=== PATIENT | female | born 1970 | race Caucasian/White ===

== ENCOUNTER → 2018-04-11 | Outpatient (CLI) | payer OTHER ==
--- NOTE | 2018-04-11 09:05 | DIAGNOSTIC IMAGING REPORT ---
LEFT FOOT 3 VIEWS HISTORY: Left foot pain. COMPARISON: None. FINDINGS: There is no fracture or dislocation. Soft tissue swelling within the fourth toe. No bony erosions identified. No radiopaque foreign bodies. The Lisfranc joint is intact. Cartilage spaces are maintained. IMPRESSION: Soft tissue swelling within the fourth toe. No underlying bony abnormality. Electronically signed by: Kevin Bartlett M.D. 04/11/2018 9:03 AM Dictated Date/Time: 04/11/2018 9:00 AM
== END | disposition home or self-care (01) ==
LOC: C.RAD1850 08:46
PROVIDERS: ATTEND Family Medicine
DX: M79.89 Other specified soft tissue disorders (principal); M79.675 Pain in left toe(s)

== ENCOUNTER 2025-01-10 07:21 | Observation (INO) ==
--- NOTE | 2025-01-02 13:39 | Anesthesiology Consultation ---
Date of Service January 02, 2025 Assessment & Plan (1) Encounter for pre-operative examination: Chart Review Chart Review: Acceptable Risk for Surgery and Patient NOT seen in Pre Admission Testing - Check test AM DOS -Infectious Disease screening: Per PAT nursing assessment on 01/02/25. No known infectious disease contacts in past 10 days or current infectious disease symptoms. No recent travel outside the country. History Surgery Operation Date: 01/10/25 08:40 Proposed Procedures p Laparoscopic Cholecystectomy with Cholangiogram, Possible Open - Cristian Driver MD, FACS Height/Weight Height: 5 ft 3 in Weight: 75.75 kg Allergies Allergy/AdvReac Type Severity Reaction Status Date / Time bee venom protein (honey bee) Allergy Severe ANAPHYLAXIS Verified 01/02/25 13:04 Cephalosporins Allergy Intermediate RASH Verified 01/02/25 13:04 raspberry Allergy Intermediate RASH Verified 01/02/25 13:04 pine nuts Allergy Hives Uncoded 01/02/25 13:04 Medications Home Medications Medication Instructions Recorded Confirmed Last Taken epinephrine 0.3 mg/0.3 mL 0.3 mg IM Q4H PRN Allergic Reaction 07/13/23 01/02/25 Unknown injection, auto-injector (EpiPen) Past Medical History Medical History (Updated 01/02/25 @ 13:36 by Rosanne Dumont PA-C) High cholesterol newly diagnosed 10/2024 (HDL 97 and LDL 119) Loose stools for last 6 weeks, "dr thinks it may be from her gallbladder" Past Family History Family History Grandfather (Maternal) Cancer Grandmother (Maternal) Diabetes Father Stroke Family/Other Heart disease Hypertension Denies family history of Ovarian cancer Prostate cancer Breast cancer Colorectal cancer Past Surgical History Surgical History H/O colonoscopy (08/2023) Social History Smoking Status: Former smoker Smoking cigarettes per day: off/on 20 years Do You Dip or Chew Tobacco: No Smoking End Date: 02/07/2020 Hx Alcohol Use: Yes alcohol intake frequency: other Alcohol Intake Frequency Comment: ~2 drinks/week Hx Substance Use: Yes substance use type: former substance user and marijuana Last Used Substance Other:: many years ago Lab Results Anesthesia Preop Results Results Anesthesia Widget: WBC 3.49 K/ul (4.8-10.8) L 01/01/25 Hgb 13.9 g/dl (12.0-16.0) 01/01/25 Hct 40.3 % (37.0-47.0) 01/01/25 Plt 239 K/uL (130-400) 01/01/25 Na 142 mmol/L (136-145) 01/01/25 K 3.7 mmol/L (3.5-5.1) 01/01/25 Cl 107 mmol/L (98-107) 01/01/25 CO2 30 mmol/L (21-32) 01/01/25 BUN 8 mg/dl (6-23) 01/01/25 Creat 0.74 mg/dl (0.6-1.2) 01/01/25 Glucose Level 96 mg/dl (70-99(Fasting)) 01/01/25 Testing Laboratory Results 01/01/25= AST: 279 ALT: 409 ALK PHOS: 122 Electrocardiogram Date: 01/01/25 Findings: + NSR @ (73bpm) Normal EKG per cardio
[~2025-01-10 07:21] MED LIST: DEXAMETHASONE SOD INJ 4 MG/ML VIAL ONE; MIDAZOLAM HCL 1 MG/ML 2ML VIAL ONE; ONDANSETRON INJ 2 MG/ML 2 ML VIAL ONE; PROPOFOL IV EMULSION 10 MG/ML 20 ML VIAL IV ONE; ROCURONIUM BROMIDE 10 MG/ML 5 ML VIAL IV ONE; SUGAMMADEX SODIUM 200 MG/2 ML VIAL IV ONE; fentaNYL citrate PF 100 MCG/2 ML VIAL ONE
[2025-01-10] MEDS: LR 15ML/HR IV SCH (08:05)
[2025-01-10] MEDS ORDERED: ATROPINE SULFATE 0.1 MG/ML 10ML SYR IV PRN (08:43)
[2025-01-10] MEDS ORDERED: NALOXONE HCL 0.4 MG/1 ML VIAL/CARP IV PRN (08:43)
[2025-01-10] MEDS ORDERED: FLUMAZENIL 0.1 MG/1 ML 10 ML VIAL IV PRN (08:43)
[2025-01-10] MEDS ORDERED: ePHEDrine sulfate 50 MG/ML AMP IV PRN (08:43)
[2025-01-10] MEDS ORDERED: PROMETHAZINE HCL 6.25 MG in SODIUM CHLORIDE 0.9% 50 ML IV PRN (08:43)
[2025-01-10] MEDS ORDERED: HYDROmorphone INJ 1 MG/ML SYRINGE IV PRN (08:43)
[2025-01-10] MEDS ORDERED: LABETALOL HCL IV 5 MG/ML 20ML IV PRN (08:43)
--- NOTE | 2025-01-10 09:03 | History & Physical Bridge Note ---
Date of Service January 10, 2025 History & Physical Bridge Note I have examined the patient, reviewed the History & Physical and in the interval since the performance of the History & Physical I have noted the following changes of clinical significance: no changes noted Supervising Physician Co-Signing Physician Notes SO at bedside all question answered
[2025-01-10] MEDS ORDERED: oxyCODONE HCL IR 5 MG TAB (IMMEDIATE RELEASE) PO PRN (09:30)
[2025-01-10] MEDS ORDERED: MoRPHine SULFATE 4 MG/ML 1 ML CARP\\VIAL IV PRN (09:30)
[2025-01-10] MEDS ORDERED: ACETAMINOPHEN 325 MG TAB PO PRN (09:30)
[2025-01-10] MEDS ORDERED: ceFAZolin 330 MG/ML 1 GM VIAL ONE (09:33)
[2025-01-10] MEDS: ceFAZolin 2000MG 2,000 MG/15 ML SYR IV ONE (09:37)
[2025-01-10] MEDS ORDERED: ROCURONIUM BROMIDE 10 MG/ML 5 ML VIAL IV ONE (09:46)
[2025-01-10] MEDS ORDERED: SUGAMMADEX SODIUM 200 MG/2 ML VIAL IV ONE (10:15)
[2025-01-10] MEDS ORDERED: PROPOFOL IV EMULSION 10 MG/ML 20 ML VIAL IV ONE (10:27)
[2025-01-10] MEDS ORDERED: fentaNYL citrate PF 100 MCG/2 ML VIAL ONE (10:33)
[2025-01-10] MEDS: IOVERSOL 50ml IV ONE (11:29)
[2025-01-10] MEDS: LIDOCAINE 1%/EPINEPHRINE 1:100,000 50 ML VIAL ONE (11:31)
--- NOTE | 2025-01-10 11:41 | Post Operative Brief Note ---
Immediate Post Op Note Date of Surgery January 10, 2025 Pre & Post Diagnosis Operation Date: 01/10/25 08:40 Pre-Op Diagnosis: Cholelithiasis Post-Op Diagnosis: Cholelithiasis I identified the patient and participated in the time-out.: Yes Procedure Operation Date: 01/10/25 08:40 Actual Procedures p Laparoscopic Cholecystectomy with Cholangiogram(Not Applicable) - Cristian Driver MD, FACS Surgeon Cristian Driver MD, FACS Reservations Clerk Ángela Martinez Estimated Blood Loss 70 Findings Consistent with Post-Op Diagnosis Drains Adalberto Drain
[2025-01-10] MEDS: ONDANSETRON INJ 2 MG/ML 2 ML VIAL IV PRN ×2 (12:05→15:05)
--- NOTE | 2025-01-10 12:12 | Operative Report ---
PG Post Operative Report Pre & Post Diagnosis Operation Date: 01/10/25 08:40 Pre-Op Diagnosis: Cholelithiasis Post-Op Diagnosis: Cholelithiasis I identified the patient and participated in the time-out.: Yes Procedure Operation Date: 01/10/25 08:40 Actual Procedures p Laparoscopic Cholecystectomy with Cholangiogram(Not Applicable) - Cristian Driver MD, FACS The patient was brought into the operating theater supine position general trach anesthesia systemic antibiotics on board timeout was had patient identified the abdomen was prepped byline solution properly draped small incision was made supraumbilically sufficient to place a Veress needle followed by CO2 followed by 5 mm trocar point of entry inspected no injury identified the depth of the right upper quadrant the gallbladder wall appeared to be thickened on direct visualization we placed a 5 mm epigastric port and 2 7 also ports a 5 mm preemptive local analgesic the gallbladder had a significant adhesions that were taken down with sharp dissection cauterized the wall was extremely thick the lateral right upper quadrant trocar site the grasper was able to elevate the gallbladder we then worked our way down to the neck of the gallbladder before even going to the neck of the gallbladder as we elevated the gallbladder we could visualize a dilated common bile duct we then we continued the dissection to free all this omental adhesions that were quite thickened all the way to the gallbladder and the wall itself was extremely thick and hard to even grasped with a large grasper but then we were able to dissect out the triangle of Mary was able to identify the cystic duct and visualize a easily from the common bile duct to the gallbladder a 5 mm clip was placed at the takeoff a small opening in the cystic duct was made a #4 urethral catheter transversing abdominal wall and Angiocath was positioned to x-ray for shaking we can see the cystic duct going a markedly dilated common bile duct there was no flow of the duodenum we repeated the average and got the same picture markedly dilated and some I thought I could see some small stones in at this point we remove the catheter doubly secured the cystic duct with 5 mm clips and took the gallbladder out in antegrade fashion from the liver bed which was extremely difficult thickened wall easily bled only able to free at all appendicular into the gallbladder and identified that there part 1 had recently grasped with the difficulty had a large stone, a 2 cm stone this fell out of the gallbladder and apparently got into it and also some other stones using electrocautery we then freed the posterior wall the gallbladder from the liver to the point that hemostasis appeared satisfactory although we did have moderate amount of oozing when all this inflammatory tissue. We were never able to identify the cystic artery and this information left hemostasis was controlled. No further bleeding was appreciated on the gallbladder fossa as we had taken out the gallbladder from the liver fossa with needed to enlarge the epigastric port to a 12 mm which we did 12 mm port was inserted replacement gallbladder an Endopouch and took it out intact through the port although we had to enlarge the opening a little bit more just to evacuate his large stone we then used another another 5 mm bag to try to engage all these extra smaller stones which we had some success but there is still some residual therefore we used a large stone extractor to remove all the stones that we proceed for the subhepatic area in the right gutter area was checked hemostasis irrigated and appeared quite satisfactory I elected to drain the subhepatic area with a 19 Adalberto drain which was brought through the epigastric area and up to the right u pper quadrant trocar site placed underneath the liver secured in place with 2-0 silk we then closed the epigastric trocar site with 0 Vicryl suture [id number] x 2 and another stitch of 0 Vicryl subcutaneous tissue that Monocryl 4 oh 30 remaining incisions of note prior to removing the camera and the trocars we inspected the trocar sites placed the camera right upper trocar site to visualize the initial entry into the umbilical area no bowel was attached to the area no adhesions once all the wounds were Steri-Strips were applied the procedure was tolerated well by the patient estimate blood loss approximately 70 cc Addendum Maame Kruger physician sound assistant was present procedure and helped retraction exposure wound closure After the procedure I spoke with Audi significant other at [phone] and told him that the patient had stones in the common bile duct and need to be removed and I did warn him ahead of time since the patient had mentioned possibility that she had liver function test elevated in the past and repeat blood showed some elevation of the bilirubin was normal we will arrange for the patient to go to [place] today or tomorrow depending on the feasibility since we have no ERCP at this hospital Surgeon Cristian Driver MD, FACS Supervisor In Circuit Testing Ángela Martinez Estimated Blood Loss 70 Findings Consistent with Post-Op Diagnosis Chronic cholecystitis cholelithiasis, bile duct stones Specimens Gallbladder and stones Drains 19 Adalberto subhepatic Indications Significant right upper quadrant pain for some time history of liver enzyme elevation done at [place] with no results were available we repeated the liver function test and they were slightly elevated but bilirubin was normal Description of Procedure merda I attest to the content of the Intraoperative Record and any orders documented therein. Any exceptions are noted below.
[2025-01-10] MEDS: fentaNYL citrate PF 100 MCG/2 ML VIAL IV PRN (12:15)
--- NOTE | 2025-01-10 12:22 | Fluoroscopy Report ---
[place] cholangiogram OR CLINICAL HISTORY: CHOLANGIOGRAM COMPARISON STUDY: Right upper quadrant ultrasound December 06, 2024. FLUOROSCOPY TIME: 1.6 seconds. Ka,r: 0.1829 mGy FLUOROSCOPIC IMAGES: 2 FINDINGS: Fluoroscopy was provided during intraoperative cholangiogram. These images demonstrate a ma rkedly dilated common bile duct. There was no opacification of the duodenum. Multiple small filling d efects within the common bile duct are noted. IMPRESSION: Fluoroscopy provided during intraoperative cholangiogram. Markedly dilated common bile d uct which likely contains numerous calculi. No opacification of the duodenum. ACT 112: Negative or not required by law. Electronically signed by: Javon Leal M.D. 01/10/2025 12:19 PM
--- NOTE | 2025-01-10 13:20 | Anesthesiology Progress Note ---
Date of Service January 10, 2025 Anesthesia Post Procedure Vital Signs Vital Signs: Temp Pulse Pulse Resp BP BP Pulse Ox 01/10/25 13:00 72 12 146/97 H 97 01/10/25 12:45 75 18 149/96 H 97 01/10/25 12:35 36.6 C 76 16 162/78 H 97 01/10/25 12:25 70 16 160/91 H 96 01/10/25 12:15 74 16 135/96 97 01/10/25 12:05 70 16 150/99 H 96 01/10/25 11:59 36 C L 75 14 153/97 H 98 01/10/25 07:35 36.9 C 82 20 123/83 99 O2 Del Method O2 Flow Rate 01/10/25 13:00 Room Air 01/10/25 12:45 Room Air 01/10/25 12:35 Room Air 01/10/25 12:25 Room Air 01/10/25 12:15 Oxymask 4 01/10/25 12:05 Oxymask 6 01/10/25 11:59 Oxymask 6 01/10/25 07:35 Room Air Pain Intensity Right Upper Abdomen: Pain Intensity: 4 Transfer of Care Handoff Completed per policy Notes Mental Status: alert / awake / arousable Patient Amnestic to Procedure: Yes Nausea / Vomiting: adequately controlled Pain: adequately controlled Airway Patency, RR, SpO2: stable & adequate BP & HR: stable & adequate Hydration State: stable & adequate Anesthetic Complications: no major complications apparent
--- NOTE | 2025-01-10 13:21 | Discharge Summary ---
Date of Service January 10, 2025 Principal Diagnosis s/p laparoscopic cholecystectomy common bile duct obstruction Discharge Exam awake/alert Respiratory normal respiratory effort Gastrointestinal (Abdomen) Inspection/Auscultation: + abdominal surgical incision (c/d/i with steri strips) and + abdominal surgical drain present Percussion/Palpation: + abdomen tender (expected post op and hiren incisional discomfort) and abdomen soft Discharge Data Allergies Allergy/AdvReac Type Severity Reaction Status Date / Time bee venom protein (honey bee) Allergy Severe ANAPHYLAXIS Verified 01/10/25 07:41 Cephalosporins Allergy Intermediate RASH Verified 01/10/25 07:41 pine nut Allergy Intermediate Hives Verified 01/10/25 08:52 raspberry Allergy Intermediate RASH Verified 01/10/25 07:41 Procedures Performed Operation Date: 01/10/25 08:40 Actual Procedures p Laparoscopic Cholecystectomy with Cholangiogram(Not Applicable) - Cristian Driver MD, FACS Ordered Studies 01/10/25 [place] cholangiogram OR Routine Hospital Course (1) S/P laparoscopic cholecystectomy: This is a 54yF who presented to the [facility] on 01/10/25 for an elective cholecystectomy with Dr. Driver. Intraoperatively he performed a routine cholangiogram which revealed findings concerning for CBD stones and obstruction without flow of contrast seen to the duodenum. Patient was recovering in the PACU and then transferred to the med/surg floor in stable condition. She was kept NPO with IVF, IV abx, prn pain/nausea meds, and had a faviola drain. I discussed the case with [facility] and their GI physician Dr. Powell who agreed to perform ERCP the following day should his schedule allow. The transfer center was contacted and working on setting up admission to the hospitalist service in the meantime. Once an accepting physician is identified and a bed opens up the patient is to transfer to [facility] for ERCP tomorrow (01/11). The patient and family was updated by Dr. Driver. She will discharge with drain in place and follow up with Dr. Driver next week in the office. (2) Common bile duct (CBD) obstruction: Total Time Total Time Spent Total Time Spent (In Minutes): 45 minutes time spent coordinating transfer to [facility], discussions with the surgeon, GI physician and triage physician. filling out transfer paperwork and discharge orders/instructions Discharge Plan Discharge Items Patient Disposition: Home - Self-Care Reason For Visit: Cholelithiasis Discharge Diagnosis: laparoscopic cholecystectomy Activity: Per Instructions section Lifting: No more than 10 pounds Bathing Comment: may shower starting 01/11/25 Exercise/Sports: Wait until after follow-up appointment Driving/Machine Use: no driving while taking narcotics for pain Non-emergency contact: Surgeon Call non-emergency contact if: you have any medication questions, your symptoms worsen, your pain is not controlled, your pain is unusual for you, you have a fever, your temperature is above 101.5, your wound has increased redness, your wound has increased drainage and your wound pain has increased Follow-up/Referrals: Cristian Driver MD, FACS [Surgeon] - (please call to schedule follow up in the office within 1 week) Adia Parra PA-C [Primary Care Provider] - Diet: Nothing by Mouth Addtl Attending Provider Instructions: SPECIAL CARE INSTRUCTIONS: * Intraoperatively you were found to have concern for common bile duct stones and obstruction on a cholangiogram. For further evaluation of this it is recommended you undergo a second procedure with a food mixer assembler called an ERCP to evaluate the bile duct and remove any stones/sludge. You will be transferred to [facility] where they have a GI physician who performs these procedures routinely. * You are to remain NPO except ice/sips of water with meds while awaiting your procedure with GI for an ERCP * You have a surgical drain in place that will remain until your follow up with Dr. Driver. Care for drain as you have been instructed prior to discharge. E mpty drain 2-3 x /daily and record output. Bring a log with you to the office. Otherwise maintain drain to bulb suction at all times. May change dressing over drain site daily with dry gauze and tape. * You will have small white bandages on called steri strips that are over your incisions. You may shower with these on. They will tend to fall off on their own within 7-10 days. Cover incisions and change daily for comfort/drainage. * You may shower 01/12. NO soaking in pools or baths for 2 weeks * No lifting greater than 10lbs. No strenuous exercise until cleared by surgeon. Light walking is accepted. * No driving while taking narcotic pain medication; wait at least 3 days * No drinking alcohol while taking narcotic pain medication *Do not take plain Tylenol while you are taking the narcotic Percocet for pain. They both contain Acetaminophen and you should not exceed >3grams of Acetaminophen within a 24 hour time period * Expect some swelling and bruising. * Diet- you may resume your regular diet Call your doctor if: * Temperature above 101 degrees, nausea/vomiting, fever/chills * Pain not relieved by pain medicine ordered * There is increased drainage or redness from any incision * You have any unanswered questions or concerns [phone]. FOLLOW UP VISIT: If not already scheduled, please call the office for a follow-up visit. Office Pending Studies at Discharge: Yes Studies:: surgical pathology Stand-Alone Forms: [facility] Medications and DC Order Prescriptions: New oxycodone-acetaminophen [Percocet] 5-325 mg tablet 1 - 2 tab PO .q4-6h PRN (Reason: pain, for initial therapy, max 6 tabs per day) Qty: 12 0RF Continued epinephrine [EpiPen] 0.3 mg/0.3 mL auto-injector 0.3 mg IM Q4H PRN (Reason: Allergic Reaction) Discharge Orders: Discharge Order (Routine); Ordered 01/10/25 Ordered By: Maame Coello Admission Data Admit Date/Time: 01/10/25 11:59 Attending Provider: Cristian Driver Admit Provider: Cristian Driver Primary Care Provider: Adia Parra Coding Level of Care Code 54746 INP/OBS DISCH >30 MIN Diagnoses S/P laparoscopic cholecystectomy Z90.49 Common bile duct (CBD) obstruction K83.1
[2025-01-10 13:59] VITALS: RESP 18
[2025-01-10] MEDS: LACTATED RINGER'S 1,000 ML IV SCH (14:01)
[2025-01-10] MEDS: MoRPHine SULFATE 2 MG/ML CARP IV PRN (14:05)
[2025-01-10] MEDS: PIPERACILLIN/TAZOBACTAM 4.5 GM/100 ML BAG IV STA (14:42)
[2025-01-10] MEDS: PIPERACILLIN/TAZOBACTAM 4.5 GM/100 ML BAG IV SCH (14:43)
[2025-01-10] MEDS: oxyCODONE HCL IR 5 MG TAB (IMMEDIATE RELEASE) PO PRN (15:05)
[2025-01-10 15:57] VITALS: BP 137/86; PULSE 79; TEMP 98.2; O2SAT 99
== END 2025-01-10 16:16 | disposition home or self-care (01) ==
LOC: ASU 07:21 → 3W 07:21